=== PATIENT | male | born 1960 | race Caucasian/White ===

== ENCOUNTER 2018-10-18 19:23 | Emergency (ER) | payer BC ==
[2018-10-18 19:30] VITALS: BP 108/83
--- NOTE | 2018-10-18 19:30 | ER Report ---
History and Physical Time Seen By MD: 19:26 HPI/ROS CHIEF COMPLAINT: Laceration HISTORY OF PRESENT ILLNESS: This is a 58-year-old male who presents emergency department for laceration. Patient states about 15 minutes prior to arrival, he was using a sharp knife slipped and impaled himself in the webspace between his left thumb and index finger. CMS is intact, bleeding controlled. Tetanus will be updated. No other complaints. No fevers chills. REVIEW OF SYSTEMS: Respiratory: No cough, no dyspnea. Cardiovascular: No chest pain, no palpitations. Gastrointestinal: No vomiting, no abdominal pain. Musculoskeletal: No back pain. Integumentary: As above. Allergies: Coded Allergies: No Known Drug Allergies (Unverified , 10/18/18) Home Meds No Active Prescriptions or Reported Meds Past Medical/Surgical History The patient has no significant past medical or surgical history. Reviewed Nurses Notes: Yes Constitutional Vital Sign - Last 24 Hours 10/18/18 19:30 Temp 97.7 Pulse 77 Resp 14 B/P (MAP) 108/83 Pulse Ox 95 O2 Delivery Room Air Physical Exam General Appearance: The patient is alert, has no immediate need for airway protection and no current signs of toxicity. Eyes: Pupils equal and round no injection. Respiratory: Chest is non tender, lungs are clear to auscultation. Cardiac: regular rate and rhythm. Gastrointestinal: Abdomen is soft and non tender, no masses, bowel sounds normal. Musculoskeletal: Neck: Neck is supple and non tender. Extremities have full range of motion and are non tender. Skin: One centimeters laceration to the webspace between the left thumb and index finger. Leading controlled. CMS intact. DIFFERENTIAL DIAGNOSIS: After history and physical exam differential diagnosis was considered for laceration to Medical Decision Making ED Course/Re-evaluation ED Course The patient was admitted to room. A history and physical were obtained. Differential diagnoses were considered. The wound was anesthetized, irrigated and repaired as noted below, the patient tolerated very well. His tetanus was updated. Although antibiotics not required at this time, I did tell the patient to monitor closely for signs of infection return to the ER for any other concerns worsening symptoms, when they return to [place] they will have the sutures removed. They were agreeable with this plan care and discharged home. Procedure: Laceration repair. Verbal consent was obtained from the patient. The one centimeters laceration on the webspace between the thumb and index finger was anesthetized in the usual fashion. The wound was scrubbed, draped and explored to its base with a gloved finger. There were no deep structures involved. No tendon injury was identified. The wound was repaired with 3, 5-0 Prolene simple interrupted sutures. The wound repair was simple. The procedure was performed by myself. Decision to Disposition Date: Oct 18, 2018 Decision to Disposition Time: 20:01 Depart Departure Latest Vital Signs Vital Signs Date Time Temp Pulse Resp B/P (MAP) Pulse Ox O2 Delivery O2 Flow Rate FiO2 10/18/18 19:30 97.7 77 14 108/83 95 Room Air Impression: Primary Impression: Hand laceration Condition: Improved Disposition: HOME OR SELF-CARE New Scripts No Active Prescriptions or Reported Meds Patient Instructions: Acute Wound Care (ED) Additional Instructions: Keep wound dry for 48 hours. Follow up with your primary care provider in the next 7-10 days to have sutures removed. Monitor for signs of infection; redness, swelling, heat, discharge, increasing pain or red streaking. Take Tylenol or Ibuprofen as needed for pain. Return to the ER with any concerns. You may change dressing as needed. Problem Qualifiers Primary Impression: Hand laceration Encounter type: initial encounter Foreign body presence: without foreign body Laterality: left Qualified Codes: S61.412A - Laceration without foreign body of left hand, initial encounter [employer]IST-BC Oct 18, 2018 19:30
[2018-10-18] MEDS ORDERED: DIPHTH/TETANUS/ACEL. PERTUSSIS IM ONLY ONE (20:00)
== END 2018-10-18 20:04 | disposition home or self-care (01) ==
LOC: ER 19:26
DX: S61.412A Laceration without foreign body of left hand, initial encounter (principal); W26.0XXA Contact with knife, initial encounter
CPT/HCPCS: 90471; 90715; 99283